=== PATIENT | female | born 1995 | race Caucasian/White ===

== ENCOUNTER 2021-10-04 10:44 | Outpatient (CLI) | payer BC, SELFPAY ==
[2021-10-04 12:23] LABS: SARS-CoV-2 RNA PCR Negative (Negative)
== END 2021-10-04 10:45 | disposition home or self-care (01) ==
PROVIDERS: PCP Internal Medicine; Visit Provider Internal Medicine
DX: Z20.822 Contact with and (suspected) exposure to COVID-19 (principal)
CPT/HCPCS: C9803; U0003; U0005

== ENCOUNTER 2021-11-19 10:57 | Outpatient (CLI) | payer BC, SELFPAY ==
[2021-11-19 11:48] LABS: Influenza Control Valid (Valid); SARS-CoV-2 Ag Negative (Negative)
[2021-11-19 12:50] LABS: SARS-CoV-2 RNA PCR Negative (Negative)
== END 2021-11-19 10:58 | disposition home or self-care (01) ==
LOC: CHSLAB 11:00
PROVIDERS: PCP Internal Medicine; Visit Provider Nurse Practitioner Family
DX: J06.9 Acute upper respiratory infection, unspecified (principal); R05.9 Cough, unspecified; Z20.822 Contact with and (suspected) exposure to COVID-19
CPT/HCPCS: 36415; 87426; 87804; C9803; U0003; U0005

== ENCOUNTER 2022-04-04 07:11 | Outpatient (CLI) | payer BC, SELFPAY ==
[2022-04-04 07:44] LABS: Creatinine Urine 96.48 mg/dL (40-278); Total Protein Urine Random 31.1 mg/dL (0.0-11.9)
[2022-04-04 07:47] LABS: Total Protein Urine 24 Hr 389 mg/24hr (0-149); Total Volume 24 Hour Urine 1250 ml
[2022-04-04 07:52] LABS: Specific Gravity Ur 1.015
== END 2022-04-04 07:12 | disposition home or self-care (01) ==
PROVIDERS: PCP Internal Medicine; Visit Provider Obstetrics & Gynecology
DX: O16.3 Unspecified maternal hypertension, third trimester (principal)
CPT/HCPCS: 81050; 82570; 84156

== ENCOUNTER 2022-04-23 08:28 | Outpatient (RCR) | payer BC, SELFPAY ==
[2022-04-06 09:47] LABS: Basophils Percent Auto 0.3 % (0.2-1.2); Eosinophils Absolute Auto 0.1 K/mm3 (0-0.3); Eosinophils Percent Auto 0.7 % (0-4.4); Hematocrit 31.6 % (37.0-47.0); Hemoglobin 10.2 g/dL (12.0-15.0); Immature Granulocyte Absolute 0.05 K/mm3 (0.00-0.031); Immature Granulocyte Percent A 0.5 % (0-0.5); Lymphocytes Absolute Auto 2.26 K/mm3 (0.9-3.2); Lymphocytes Percent Auto 22.5 % (18.3-44.2); Mean Corpuscular HGB Conc 32.3 g/dl (32-36); Mean Corpuscular Hemoglobin 27.3 pg (26-34); Mean Corpuscular Volume 84.5 fl (80-100); Mean Platelet Volume 9.9 fl (7.4-10.4); Monocytes Percent Auto 10.1 % (2.6-8.5); Neutrophils Absolute Auto 6.6 K/mm3 (1.3-6.7); Neutrophils Percent Auto 65.9 % (45.5-73.1); Platelet Count Result 254 k/mm3 (150-375); Red Blood Count 3.74 M/mm3 (4.2-5.4); Red Cell Distribution Width 13.2 % (11.5-14.5); White Blood Count 10.1 K/mm3 (4.5-10.0)
[2022-04-06 09:59] LABS: Alanine Aminotransferase 14 U/L (6-35); Albumin Level 3.5 g/dL (3.5-5.1); Alkaline Phosphatase 141 U/L (38-126); Anion Gap 3 mmol/L (8-16); Aspartate Amino Transferase 20 U/L (14-36); Bilirubin,Total 0.2 mg/dL (0.2-1.3); Blood Urea Nitrogen 8 mg/dL (7-17); Calcium 8.4 mg/dL (8.4-10.2); Carbon Dioxide 24 mmol/L (22-30); Chloride 107 mmol/L (98-107); Estimated Glomerular Filt Rate > 60; Glucose 93 mg/dL (65-110); Potassium 4.3 mmol/L (3.4-5.0); Sodium 134 mmol/L (137-145); Uric Acid 3.8 mg/dL (2.5-7.5)
[2022-04-06 10:21] LABS: Creatinine Urine 57.5 mg/dL; Total Protein Urine Random 12 mg/dL; Ur Ttl Prot Creatinine Ratio 0.21 mg/mg (0-0.20)
[2022-04-06 10:34] VITALS: BP 116/80; PULSE 89
[2022-04-06 10:43] LABS: Appearance Urine Clear (Clear); Bilirubin Urine Negative (Negative); Color Urine Yellow (Yellow); Glucose Urine UA Negative (Negative); Ketones Urine Negative (Negative); Leukocyte Esterase Ur 1+ LEU/UL (NEGATIVE); Nitrate Urine Negative (Negative); Protein Urine Negative (Negative); Specific Grav Ur 1.015 (1.001-1.035); Urobilinogen Urine 0.2 mg/dL (<2.0)
[2022-04-06 10:52] LABS: Bacteria Urine Trace /hpf; RBC Urine 0-2 /hpf (0-2); Squamous Epithelial Cell Urine Moderate /hpf (Few); WBC Urine 0-3 /hpf (0-3)
[2022-04-06 11:01] LABS: Add Urine Microscopic? YES; Blood Urine Trace-Intact (Negative)
[2022-04-11 09:16] VITALS: BP 119/72; PULSE 103
[2022-04-14 08:26] LABS: Basophils Percent Auto 0.3 % (0.2-1.2); Eosinophils Absolute Auto 0.1 K/mm3 (0-0.3); Eosinophils Percent Auto 0.6 % (0-4.4); Hematocrit 29.8 % (37.0-47.0); Hemoglobin 9.5 g/dL (12.0-15.0); Immature Granulocyte Absolute 0.04 K/mm3 (0.00-0.031); Immature Granulocyte Percent A 0.4 % (0-0.5); Lymphocytes Absolute Auto 2.29 K/mm3 (0.9-3.2); Lymphocytes Percent Auto 24.6 % (18.3-44.2); Mean Corpuscular HGB Conc 31.9 g/dl (32-36); Mean Corpuscular Hemoglobin 26.8 pg (26-34); Mean Corpuscular Volume 83.9 fl (80-100); Mean Platelet Volume 10.1 fl (7.4-10.4); Monocytes Absolute Auto 0.8 K/mm3 (0.1-0.6); Neutrophils Absolute Auto 6.2 K/mm3 (1.3-6.7); Neutrophils Percent Auto 66.1 % (45.5-73.1); Platelet Count Result 233 k/mm3 (150-375); Red Blood Count 3.55 M/mm3 (4.2-5.4); Red Cell Distribution Width 13.2 % (11.5-14.5); White Blood Count 9.3 K/mm3 (4.5-10.0)
[2022-04-14 08:35] VITALS: BP 130/80; PULSE 103
[2022-04-14 08:58] LABS: Alanine Aminotransferase 15 U/L (6-35); Albumin Level 3.2 g/dL (3.5-5.1); Alkaline Phosphatase 142 U/L (38-126); Anion Gap 4 mmol/L (8-16); Aspartate Amino Transferase 19 U/L (14-36); Bilirubin,Total 0.2 mg/dL (0.2-1.3); Blood Urea Nitrogen 9 mg/dL (7-17); Calcium 8.7 mg/dL (8.4-10.2); Carbon Dioxide 22 mmol/L (22-30); Chloride 108 mmol/L (98-107); Estimated Glomerular Filt Rate > 60; Glucose 139 mg/dL (65-110); Sodium 134 mmol/L (137-145); Uric Acid 3.9 mg/dL (2.5-7.5)
[2022-04-14 09:07] LABS: Potassium 4.3 mmol/L (3.4-5.0)
--- NOTE | 2022-04-14 09:17 | PC.NURSE ---
BPP 05/30
[2022-04-18 19:21] VITALS: BP 118/85; PULSE 85
[2022-04-21 08:55] LABS: Basophils Percent Auto 0.4 % (0.2-1.2); Eosinophils Absolute Auto 0.1 K/mm3 (0-0.3); Eosinophils Percent Auto 0.8 % (0-4.4); Hematocrit 29.4 % (37.0-47.0); Hemoglobin 9.3 g/dL (12.0-15.0); Immature Granulocyte Absolute 0.04 K/mm3 (0.00-0.031); Immature Granulocyte Percent A 0.5 % (0-0.5); Lymphocytes Absolute Auto 2.03 K/mm3 (0.9-3.2); Lymphocytes Percent Auto 24.5 % (18.3-44.2); Mean Corpuscular HGB Conc 31.6 g/dl (32-36); Mean Corpuscular Hemoglobin 26.3 pg (26-34); Mean Corpuscular Volume 83.1 fl (80-100); Monocytes Absolute Auto 0.8 K/mm3 (0.1-0.6); Monocytes Percent Auto 9.6 % (2.6-8.5); Neutrophils Absolute Auto 5.3 K/mm3 (1.3-6.7); Neutrophils Percent Auto 64.2 % (45.5-73.1); Platelet Count Result 222 k/mm3 (150-375); Red Blood Count 3.54 M/mm3 (4.2-5.4); Red Cell Distribution Width 13.3 % (11.5-14.5); White Blood Count 8.3 K/mm3 (4.5-10.0)
[2022-04-21 09:09] LABS: Alanine Aminotransferase 14 U/L (6-35); Alkaline Phosphatase 145 U/L (38-126); Anion Gap 5 mmol/L (8-16); Aspartate Amino Transferase 19 U/L (14-36); Bilirubin,Total 0.1 mg/dL (0.2-1.3); Blood Urea Nitrogen 8 mg/dL (7-17); Calcium 8.7 mg/dL (8.4-10.2); Carbon Dioxide 20 mmol/L (22-30); Chloride 109 mmol/L (98-107); Estimated Glomerular Filt Rate > 60; Glucose 131 mg/dL (65-110); Potassium 3.8 mmol/L (3.4-5.0); Sodium 134 mmol/L (137-145); Uric Acid 4.7 mg/dL (2.5-7.5)
[2022-04-21 09:20] VITALS: BP 126/82; PULSE 101
--- NOTE | ~2022-04-23 | US_ITS ---
US OB BPP wo non-stress DATE: 04/06/2022 10:01 INDICATION: Preeclampsia TECHNIQUE: Real-time imaging and Doppler analysis COMPARISON: 03/25/2022 Limited obstetrical ultrasound from [place] [employer] FINDINGS: Live trejo intrauterine gestation, fetus in vertex presentation, longitudinal lie with heart rate of 142 bpm. Posterior placenta. Amniotic fluid index measures 16.0 cm, normal. BIOPHYSICAL PROFILE reported by hazardous waste technician: breathin out of 2 movement: 2 out of 2 tone: 2 out of 2 Amniotic fluid pocket: 2 out of 2 Total score: 8 out of 8 IMPRESSION: Normal biophysical profile score of 8 out of 8 Reviewed, dictated and finalized at [facility]. Reviewed, dictated and finalized at location A.
--- NOTE | ~2022-04-23 | US_ITS ---
EXAMINATION: US OB BPP wo non-stress DATE: 04/14/2022 09:17 INDICATION: Preeclampsia. Third trimester. TECHNIQUE: Real-time pelvic ultrasound was performed. COMPARISON: Ultrasound 04/06/2022 FINDINGS: There is a single living fetus in vertex presentation. The placenta is posterior. heart rate i s 147 beats per minute (bpm). Biophysical profile performed by the technologist: breathing (30 sec sustained breathing in 30 minutes): 2 out of 2 movement (3 gross body movements in 30 minutes): 2 out of 2 tone (one episode of lvkpfrq-sldrhyyrk-phdfqaf limb movement): 2 out of 2 Amniotic fluid pocket (2 cm): 2 out of 2 Total score: 8 out of 8 IMPRESSION: 1. Single living fetus in vertex presentation. 2. Biophysical profile 8 out of 8. Reviewed, dictated and finalized at location A.
--- NOTE | ~2022-04-23 | US_ITS ---
EXAMINATION: US OB BPP wo non-stress DATE: 04/21/2022 09:21 CDT INDICATION: Gestational hypertension TECHNIQUE: Real-time transabdominal obstetric ultrasound. FINDINGS: 04/14/2022 There is a single living fetus in vertex presentation. The placenta is posterior without placenta pr evia. cardiac activity and movement is noted with a heart rate of 146 beats per minute. Biophysical profile: breathin of 2 movement: 2 of 2 tone: 2 of 2 Amniotic flud pocket: 2 of 2 Total score: 8 of 8 IMPRESSION: 1. Single living intrauterine in vertex presentation. 2: Total biophysical profile score of 8/8. Reviewed, dictated and finalized at location A.
[2022-04-23 09:13] VITALS: BP 124/85; PULSE 101
== END 2022-04-30 09:28 | disposition home or self-care (01) ==
LOC: ANHOBOP 08:28
PROVIDERS: PCP Internal Medicine; Visit Provider Obstetrics & Gynecology
DX: O14.93 Unspecified pre-eclampsia, third trimester (principal); Z3A.34 34 weeks gestation of pregnancy; Z3A.35 35 weeks gestation of pregnancy
CPT/HCPCS: 36415; 59025; 76819; 80053; 81001; 82570; 84156; 84550; 85025; 87086; 87088; 87147

== ENCOUNTER 2022-04-25 16:49 | Inpatient (IN) | payer BC, SELFPAY ==
[2022-04-25] VITALS (35 sets, daily range): BP systolic 102–143; BP diastolic 58–98; PULSE 65–131; TEMP 36.4–36.8; O2SAT 99–100; BMI 35.1
--- NOTE | 2022-04-25 17:57 | LDADM ---
This patient, Purvi Donato, was admitted to Labor/Delivery/Recovery 108 on 04/25/22 at 16:49. Plans for labor, pain management and were discussed with patient. Patient/family oriented to hospital policies and general routines including ID bracelet, bed and alarms, visiting hours, pain management, procedures, bathroom and other care routines, personal items, smoking policy, room service/diet and guest tray routines, security routines, and visiting hours. Patient/Family are encouraged to report perceived risks to care and to ask questions if they do not understand what they are told or what they should do. See OBIX for further documentation.
[2022-04-25 18:02] LABS: Basophils Percent Auto 0.4 % (0.2-1.2); Eosinophils Percent Auto 0.5 % (0-4.4); Hematocrit 29.5 % (37.0-47.0); Hemoglobin 9.4 g/dL (12.0-15.0); Immature Granulocyte Absolute 0.04 K/mm3 (0.00-0.031); Immature Granulocyte Percent A 0.5 % (0-0.5); Lymphocytes Absolute Auto 2.02 K/mm3 (0.9-3.2); Mean Corpuscular HGB Conc 31.9 g/dl (32-36); Mean Corpuscular Hemoglobin 26.3 pg (26-34); Mean Corpuscular Volume 82.6 fl (80-100); Mean Platelet Volume 10.2 fl (7.4-10.4); Monocytes Absolute Auto 0.7 K/mm3 (0.1-0.6); Monocytes Percent Auto 9.1 % (2.6-8.5); Neutrophils Absolute Auto 4.9 K/mm3 (1.3-6.7); Neutrophils Percent Auto 63.5 % (45.5-73.1); Platelet Count Result 242 k/mm3 (150-375); Red Blood Count 3.57 M/mm3 (4.2-5.4); Red Cell Distribution Width 13.5 % (11.5-14.5); White Blood Count 7.8 K/mm3 (4.5-10.0)
[2022-04-25 18:10] LABS: Alanine Aminotransferase 18 U/L (6-35); Albumin Level 3.1 g/dL (3.5-5.1); Alkaline Phosphatase 157 U/L (38-126); Anion Gap 7 mmol/L (8-16); Aspartate Amino Transferase 22 U/L (14-36); Bilirubin,Total 0.1 mg/dL (0.2-1.3); Blood Urea Nitrogen 13 mg/dL (7-17); Calcium 8.9 mg/dL (8.4-10.2); Carbon Dioxide 17 mmol/L (22-30); Chloride 111 mmol/L (98-107); Estimated CRCL calculation 122 ml/min; Estimated Glomerular Filt Rate > 60; Glucose 136 mg/dL (65-110); Potassium 3.8 mmol/L (3.4-5.0); Sodium 135 mmol/L (137-145)
[2022-04-25 18:15] LABS: Uric Acid 4.9 mg/dL (2.5-7.5)
[2022-04-25] MEDS: DINOPROSTONE 10 MG VAG INSERT VAGINAL (18:30)
[2022-04-25 18:49] LABS: Hepatitis B Surface Antigen Negative (Negative)
[2022-04-25] MEDS: LACTATED RINGERS 1,000 ML 125 ML IV CONT ×3 (19:01→23:57)
[2022-04-25] MEDS: AMPICILLIN 2 GM/NS 100 ML 2 GM/100 ML BAG IVPB (20:26)
--- NOTE | 2022-04-25 23:25 | WPDANESEPP ---
Anes - Eval Pre Procedure Procedure: labor epidural Date/Time: 04/25/22 23:25 Surgeon: wendy Pre Op Diagnosis: IOL Patient Data Age: 26 Gender: F Height: 1.68 m Weight: 98.6 kg Last Vital Signs Temp 36.4 C L 04/25/22 20:30 Pulse 66 04/25/22 23:16 BP 124/72 04/25/22 23:16 Pulse Ox 100 04/25/22 23:24 O2 Del Method Room Air 04/25/22 17:54 Allergies Allergy/AdvReac Type Severity Reaction Status Date / Time latex Allergy Hives Verified 04/18/22 15:38 Home Medications Medication Instructions Recorded Confirmed Type aspirin 81 mg chewable tablet 81 mg PO DAILY 11/04/21 04/25/22 History famotidine 20 mg tablet (Pepcid AC) 20 mg PO DAILY #90 tabs 11/04/21 04/25/22 Rx vit no.95-ferrous 1 tablet PO DAILY #30 tabs 11/04/21 04/25/22 Rx fumarate 28 mg-folic acid 800 mcg tablet () Laboratory Tests 04/25/22 04/25/22 04/25/22 17:17 17:17 17:17 WBC 7.8 K/mm3 K/mm3 (4.5-10.0) RBC 3.57 M/mm3 L M/mm3 (4.2-5.4) Hgb 9.4 g/dL L g/dL (12.0-15.0) Hct 29.5 % L % (37.0-47.0) MCV 82.6 fl fl (80-100) MCH 26.3 pg pg (26-34) MCHC 31.9 g/dl L g/dl (32-36) RDW 13.5 % % (11.5-14.5) Plt Count 242 k/mm3 k/mm3 (150-375) MPV 10.2 fl fl (7.4-10.4) Immature Gran % (Auto) 0.5 % % (0-0.5) Neut % (Auto) 63.5 % % (45.5-73.1) Lymph % (Auto) 26.0 % % (18.3-44.2) Haskell % (Auto) 9.1 % H % (2.6-8.5) Eos % (Auto) 0.5 % % (0-4.4) Baso % (Auto) 0.4 % % (0.2-1.2) Lymph # (Auto) 2.02 K/mm3 K/mm3 (0.9-3.2) Haskell # (Auto) 0.7 K/mm3 H K/mm3 (0.1-0.6) Eos # (Auto) 0.0 K/mm3 K/mm3 (0-0.3) Baso # (Auto) 0.0 K/mm3 K/mm3 (0.0-0.1) Abs Immat Gran (auto) 0.04 K/mm3 H K/mm3 (0.00-0.031) Absolute Neuts (auto) 4.9 K/mm3 K/mm3 (1.3-6.7) Absolute Nucleated RBC 0.0 K/mm3 K/mm3 (0.0-0.012) Nucleated RBC % 0.0 % % (0.0-0.2) Sodium Potassium Chloride Carbon Dioxide Anion Gap BUN Creatinine Estim Creat Clear Calc Estimated GFR Glucose Uric Acid Calcium Total Bilirubin AST ALT Alkaline Phosphatase Total Protein Albumin RPR Pending Hep Bs Antigen Blood Type O Positive Antibody Screen Negative 04/25/22 04/25/22 04/25/22 17:32 17:32 17:32 WBC RBC Hgb Hct MCV MCH MCHC RDW Plt Count MPV Immature Gran % (Auto) Neut % (Auto) Lymph % (Auto) Haskell % (Auto) Eos % (Auto) Baso % (Auto) Lymph # (Auto) Haskell # (Auto) Eos # (Auto) Baso # (Auto) Abs Immat Gran (auto) Absolute Neuts (auto) Absolute Nucleated RBC Nucleated RBC % Sodium 135 mmol/L L mmol/L (137-145) Potassium 3.8 mmol/L mmol/L (3.4-5.0) Chloride 111 mmol/L H mmol/L (98-107) Carbon Dioxide 17 mmol/L L mmol/L (22-30) Anion Gap 7 mmol/L L mmol/L (8-16) BUN 13 mg/dL D mg/dL (7-17) Creatinine 0.70 mg/dL mg/dL (0.7-1.0) Estim Creat Clear Calc 122 ml/min ml/min Estimated GFR > 60 (59 - ) Glucose 136 mg/dL H mg/dL (65-110) Uric Acid 4.9 mg/dL mg/dL (2.5-7.5) Calcium 8.9 mg/dL mg/dL (8.4-10.2) Total Bilirubin 0.1 mg/dL L mg/dL (0.2-1.3) AST 22 U/L U/L (14-36) ALT 18 U/L U/L
[2022-04-26] VITALS (154 sets, daily range): BP systolic 79–146; BP diastolic 49–81; PULSE 62–134; RESP 16–18; TEMP 36.1–37; O2SAT 80–100
[2022-04-26] MEDS: AMPICILLIN 1 GM/NS 50 ML 1 GM/50 ML BAG IVPB ×3 (00:32→08:30)
--- NOTE | 2022-04-26 06:36 | PM.IMHP ---
H&P: HPI History of Present Illness Date/Time: 04/26/22 06:36 Chief Complaint: induction Narrative: Purvi is a 26yo @ 37.4wk who was admitted overnight for induction of labor. She is s/p cervidil that had to be removed early for tachysystole. She has continued to have period of tachysystole and progressed to 7cm. she is comfortable, s/p epidural. Feeling good movements. No LOF or VB. No symptoms of PEC. Her has been complicated by: 1. H/o gestational HTN -- on ASA 2. PEC w/o SF (protein 389) 3. Elevated glucola; repeat 3h OGTT normal 4. GBS positive 5. Anemia Review of Systems Review of Systems: All systems reviewed & are unremarkable except as noted in HPI and below (HPI) PMFSH Past Medical History Medical History Gestational [-induced] hypertension without significant proteinuria, complicating childbirth Migraines Surgical History Surgical History S/P left knee arthroscopy Family History Family History Grandparent Diabetes mellitus Grandparent Cerebrovascular accident Grandparent Hypertension Other Unknown family medical history Social History Social History Smoking status: Never smoker Second hand tobacco smoke exposure: No Alcohol intake: never Substance use: never Additional occupation/education comments: pt is a counselor at [employer] Gender identity (if verbalized by the patient): Female Sexual Orientation (if Verbalized by the Patient): Straight or Heterosexual Spiritual care concerns: No Meds Home Medications and Allergies Home Medications Medication Instructions Recorded Confirmed Type aspirin 81 mg chewable tablet 81 mg PO DAILY 11/04/21 04/25/22 History famotidine 20 mg tablet (Pepcid AC) 20 mg PO DAILY #90 tabs 11/04/21 04/25/22 Rx vit no.95-ferrous 1 tablet PO DAILY #30 tabs 11/04/21 04/25/22 Rx fumarate 28 mg-folic acid 800 mcg tablet () Allergies Allergy/AdvReac Type Severity Reaction Status Date / Time latex Allergy Hives Verified 04/18/22 15:38 Vital Signs Vital Signs - 24 hr 04/25/22 17:09 04/25/22 17:15 04/25/22 17:45 Temperature Pulse Rate 98 103 H 87 Blood Pressure 143/87 H 131/83 130/82 Pulse Oximetry Oxygen Delivery 04/25/22 17:18 04/25/22 18:00 04/25/22 18:15 Temperature 98.2 F Pulse Rate 88 95 Blood Pressure 132/78 127/75 Pulse Oximetry Oxygen Delivery 04/25/22 18:45 04/25/22 19:00 04/25/22 19:15 Temperature Pulse Rate 112 H 84 83 Blood Pressure 123/78 135/86 124/84 Pulse Oximetry Oxygen Delivery 04/25/22 19:30 04/25/22 19:45 04/25/22 20:00 Temperature Pulse Rate 80 86 90 Blood Pressure 137/88 131/86 132/92 H Pulse Oximetry Oxygen Delivery 04/25/22 20:30 04/25/22 21:48 04/25/22 22:00 Temperature 97.5 F L Pulse Rate 77 69 73 Blood Pressure 135/81 130/81 123/75 Pulse Oximetry Oxygen Delivery 04/25/22 22:15 04/25/22 22:31 04/25/22 22:45 Temperature Pulse Rate 78 76 70 Blood Pressure 128/78 128/82 137/84 Pulse Oximetry Oxygen Delivery 04/25/22 23:12 04/25/22 23:16 04/25/22 23:24 Temperature Pulse Rate 65 66 Blood Pressure 128/78 124/72 Pulse Oximetry 100 Oxygen Delivery 04/25/22 23:29 04/25/22 23:30 04/25/22 23:34 Temperature Pulse Rate 75 Blood Pressure 129/89 Pulse Oximetry 100 100 Oxygen Delivery 04/25/22 23:36 04/25/22 23:38 04/25/22 23:39 Temperature Pulse Rate 83 84 86 Blood Pressure 135/98 H 136/66 124/80 Pulse Oximetry 99 Oxygen Delivery 04/25/22 23:41 04/25/22 23:43 04/25/22 23:45 Temperature Pulse Rate 89 86 95 Blood Pressure 124/83 126/58 L 128/75 Pulse Oximetry 100 Oxygen Delivery
--- NOTE | 2022-04-26 06:50 | WPDHPUPDATE1 ---
History and Physical Update Update Date/Time: 04/26/22 06:50 History and Physical has been reviewed, including an updated exam of the patient. There are NO changes in the patient's condition. Risks, benefits, and alternatives have been discussed and questions answered. Patient agrees to proceed with procedure.
[2022-04-26 07:09] LABS: Rapid Plasma Reagin Non-Reactive (NonReactive)
[2022-04-26] MEDS: OXYTOCIN 30 UNITS/NS 500 ML 30 UNITS/500 ML BAG IV CONT (07:34)
[2022-04-26] MEDS: LACTATED RINGERS 1,000 ML 125 ML IV CONT (08:30)
[2022-04-26] MEDS: miSOPROStol 200 MCG TABLET 1000 MCG (10:32)
--- NOTE | 2022-04-26 10:47 | PM.OBPRVD ---
OB - Delivery Note Procedure Delivery date: 04/26/22 Events: Preeclampsia w/o severe features Induction method: Per Cervidil Protocol Delivery augmentation: Rupture of Membranes and Pitocin Delivery monitor: External FHT and External Uterine Route of delivery: Laceration Description: None Specimen: Yes Quantitative Blood Loss (ml): 400 Anesthesia type: Epidural Disposition: Floor Dexter Baby Date of : 04/26/22 Time of : 10:24 Weeks of gestation at delivery: 37 (.4) gender: Male Weight (pounds): 8 Weight (ounces): 14 presentation: vertex position: Left Occiput Anterior Placenta delivery description: Expressed Cord Vessel Description: 3 Vessels, Nuchal Cord, Loose and Delayed Cord Clamping score one minute: 8 score five minutes: 9 Narrative: Purvi progressed to complete dilation with strong desire to push. She pushed for approximately 10 minutes with good maternal effort. She delivered the head over intact perineum. A nuchal cord was palpated but loose and delivered through. She easily delivered the 's shoulders and body without complication. The infant was immediately placed skin to skin and cry was heard. Delayed cord clamping was performed. The umbilical cord was then clamped and cut. A segment of the cord was collected for cord gases. The remaining cord blood was collected for typing. With Pitocin running and gentle downward traction on the cord, the placenta delivered without complications. A large gush of blood was noted and bimanual massage revealed slight uterine atony that responded to massage and bleeding slowed down. She was examined and no lacerations were noted. Good hemostasis was noted. Misoprostol 800 mcg was placed rectally to prevent further bleeding. Sponge, lap, instrument, needle counts were correct at the end of procedure. [facility] Delivery Billing Delivery Delivery: Delivery Charge
[2022-04-26] MEDS: OXYTOCIN 30 UNITS/NS 500 ML 30 UNITS/500 ML BAG 125 UNITS IV CONT (10:51)
[2022-04-26] MEDS: BENZOCAINE 20% AER SPR (*SP) 56 GM CAN 1 SPRAY TOPICAL (12:24)
[2022-04-26] MEDS: WITCH HAZEL 40 PADS 1 PAD TOPICAL (12:24)
[2022-04-26] MEDS: IBUPROFEN 600 MG TABLET PO ×2 (12:24→19:14)
[2022-04-26] MEDS: ACETAMINOPHEN 325 MG TABLET 650 MG PO (13:46)
[2022-04-26] MEDS: POLYSACCHARIDE IRON COMPLEX 150 MG CAPSULE PO (16:21)
[2022-04-26] MEDS: DOCUSATE SODIUM 100 MG CAPSULE PO (16:22)
--- NOTE | 2022-04-26 16:22 | PC.NURSE ---
Breast pump provided due to nipple shield . Instructions given on cleaning, care, usage, that there should be no pain, pumping schedule for milk production, collection, and storage of human milk. Parents are encouraged to record pumping schedule on the [feeding sheet/pumping log]. Patient was assessed for correct placement, flange size, to pump for comfort and nipple stretching/stimulation for adequate milk production every 3 hours (8 times in 24 hours). Mother voiced understanding of the education shared along with mom and baby guide for additional resource information. Reported to the primary RN.
--- NOTE | 2022-04-26 16:23 | PC.NURSE ---
Consulted with patient to assess needs related to . Mother led conversation with her experience with feeding her previous baby and using a nipple shield with that child. Mother works well with her infant. Reviewed working with , breast, nipples and how to protect the nipples with an optimal deep latch, good positioning, and good hand washing. Encouraged understanding the benefits of skin to skin, responding to feeding cues, frequencies of feeding 8-12 times in 24 hours (approximately 2-3 hours), duration of feedings, milk production, intake/output feeding sheet and signs of adequate intake encouraging swallowing at the breast. Reviewed positioning and alignment, supporting breast, off-centered (asymmetrical latch) and leading with the chin with big open wide gape. latched optimally to the right] breast in football/ position with nipple shield. Education given to mother of how to visualize suck/swallow ratios and drinking at the breast. Infant was able to maintain latch without discomfort to mother. Nipple care reviewed with optimal latch and good positioning, comfort, healing with warm, wet washcloth to rinse breast, then leave open to air-dry, colostrum may be left on nipples to dry but have clean hands when touching the nipple/breast as needed. Resources used to facilitate learning were used from the [visual handout/mom and baby guide]. Mother voiced understanding of the education shared, calling for assistance if the does not latch or if there is discomfort with . Reported to the primary RN.
--- NOTE | 2022-04-26 16:27 | PC.NURSE ---
Nipple shield provided to mother due to flat nipples. Reviewed good handwashing, cleaning the nipple shield and application. Discussed with mom the nipple shield precautions, possible complications associated with the risks and benefits. Reviewed practicing with a nipple shield, then without and how to protect the milk supply and production. Mom and baby guide referred to as a resource for using a nipple shield, out-patient services, community resources and when to call a provider. Mom voiced understanding of the importance of hand expression, nipple stimulation and initiating a pumping schedule if continues to nurse with the shield.
[2022-04-27] MEDS: IBUPROFEN 600 MG TABLET PO ×3 (02:10→17:31)
[2022-04-27 04:28] VITALS: BP 115/75; PULSE 70; RESP 16; TEMP 36.7
[2022-04-27 04:58] LABS: Hematocrit 26.6 % (37.0-47.0); Hemoglobin 8.2 g/dL (12.0-15.0); Mean Corpuscular HGB Conc 30.8 g/dl (32-36); Mean Corpuscular Volume 84.4 fl (80-100); Mean Platelet Volume 10.7 fl (7.4-10.4); Platelet Count Result 189 k/mm3 (150-375); Red Blood Count 3.15 M/mm3 (4.2-5.4); Red Cell Distribution Width 13.6 % (11.5-14.5); White Blood Count 10.9 K/mm3 (4.5-10.0)
[2022-04-27 05:08] LABS: Alanine Aminotransferase 16 U/L (6-35); Albumin Level 2.6 g/dL (3.5-5.1); Alkaline Phosphatase 121 U/L (38-126); Anion Gap 0 mmol/L (8-16); Aspartate Amino Transferase 33 U/L (14-36); Bilirubin,Total 0.1 mg/dL (0.2-1.3); Blood Urea Nitrogen 13 mg/dL (7-17); Calcium 8.3 mg/dL (8.4-10.2); Carbon Dioxide 25 mmol/L (22-30); Chloride 108 mmol/L (98-107); Estimated CRCL calculation 108 ml/min; Estimated Glomerular Filt Rate > 60; Glucose 78 mg/dL (65-110); Potassium 4.2 mmol/L (3.4-5.0); Sodium 133 mmol/L (137-145)
--- NOTE | 2022-04-27 07:21 | PM.OBPNVD ---
OB - PN: Subj Subjective Date/time seen: 04/27/22 07:20 Narrative: PPD#1 Purvi reports doing well today. Her bleeding is getting compensation/benefits specialist. Her pain is controlled. She is tolerating regular diet, voiding, passing gas, and ambulating without issues. She is breast feeding. She denies any symptoms of anemia. She would like her son circumcised. OB - PN: Obj Data Labs CBC & Chem 7: 04/27/22 04:27 04/27/22 04:27 Labs: Laboratory Results - last 24 hr 04/25/22 04/27/22 04/27/22 17:17 04:27 04:27 WBC 10.9 H RBC 3.15 L Hgb 8.2 L Hct 26.6 L MCV 84.4 MCH 26.0 MCHC 30.8 L RDW 13.6 Plt Count 189 MPV 10.7 H Sodium 133 L Potassium 4.2 Chloride 108 H Carbon Dioxide 25 Anion Gap 0 L BUN 13 Creatinine 0.80 Estim Creat Clear Calc 108 Estimated GFR > 60 Glucose 78 Calcium 8.3 L Total Bilirubin 0.1 L AST 33 ALT 16 Alkaline Phosphatase 121 Total Protein 6.0 L Albumin 2.6 L RPR Non-reactive OB - PN A/P Assessment and Plan (1) Pre-eclampsia: Qualifiers: Trimester: third trimester Qualified Code(s): O14.93 - Unspecified pre-eclampsia, third trimester Code(s): O14.90 - Unspecified pre-eclampsia, unspecified trimester Status: Acute (2) Normal vaginal delivery of second : Code(s): O80 - Encounter for full-term uncomplicated delivery Status: Acute (3) Anemia affecting second : Code(s): O99.019 - Anemia complicating , unspecified trimester Status: Acute Plan day: 1 Plan: routine care and discharge home (tomorrow) Comments: - discharge home tomorrow - Pelvic rest; take meds as prescribed - ER return precautions: fever, n/v/abd pain, bleeding, HTN Time Spent With Patient Time: Total time spent is greater than 50% in coordination of care (as documented) at patient's floor/unit and/or counseling patient: Review of Systems Constitutional: Constitutional: Denies chills, Denies fever(s) and Denies headache(s) Eyes: Eyes: Denies change in vision ENT: Denies dizziness and Denies headache(s) Cardiovascular: Cardiovascular: Denies chest pain, Denies palpitations and Denies dyspnea Respiratory: Respiratory: Denies cough and Denies dyspnea Gastrointestinal: Gastrointestinal: Denies nausea and Denies vomiting Neurologic: Denies dizziness and Denies headache(s) Endocrine: Endocrine: Denies palpitations Exam Const: General: cooperative, comfortable and no acute distress Orientation/consciousness: patient oriented x3 Resp: Effort & Inspection: normal respiratory effort Auscultation: clear to auscultation bilaterally Cardio: Rate: regular rate GI: Inspection: non-distended GI Palp: No abdominal tenderness and Yes Soft to palpation Auscultation: normal bowel sounds : Other: fundus firm Skin: General skin exam: normal color Neuro: General: patient oriented x3 Extrem: General: normal to inspection Psych: Appearance: grossly normal Affect: normal affect Attitude: cooperative
[2022-04-27 08:05] VITALS: BP 126/80; PULSE 79; RESP 18; TEMP 36.1; O2SAT 99
[2022-04-27] MEDS: DOCUSATE SODIUM 100 MG CAPSULE PO ×2 (09:12→17:32)
[2022-04-27] MEDS: MULTIVIT/MIN/PREN/FOL AC/IRON TABLET 1 TAB PO (09:12)
[2022-04-27] MEDS: FAMOTIDINE 20 MG TABLET PO (09:12)
[2022-04-27] MEDS: POLYSACCHARIDE IRON COMPLEX 150 MG CAPSULE PO ×2 (09:12→17:31)
--- NOTE | 2022-04-27 09:30 | WPDANLDPN2 ---
Anes-Prog Note L&D Date/Time: 04/27/22 09:30 Neuro status: Neuro function grossly intact. Vital Signs: Last Vital Signs Temp 36.1 C L 04/27/22 08:05 Pulse 79 04/27/22 08:05 Resp 18 04/27/22 08:05 BP 126/80 04/27/22 08:05 Pulse Ox 99 04/27/22 08:05 O2 Del Method Room Air 04/25/22 17:54 Pain score (VAS): 0 I/O: Intake & Output 04/26/22 04/27/22 04/27/22 23:59 07:59 15:59 Intake Total 500 1000 Output Total 800 Balance 500 200 Patient feedback: Patient satisfied with anesthetic care.
[2022-04-27 11:55] VITALS: BP 132/76; PULSE 83; RESP 18; TEMP 36.3; O2SAT 100
[2022-04-27 16:00] VITALS: BP 128/93; PULSE 74; RESP 14; TEMP 36.6; O2SAT 99
[2022-04-27 19:54] VITALS: BP 128/80; PULSE 67; PULSE 68; RESP 18; TEMP 36.4; O2SAT 99
[2022-04-28] MEDS: IBUPROFEN 600 MG TABLET PO (03:40)
[2022-04-28 03:43] VITALS: BP 121/84
--- NOTE | 2022-04-28 07:27 | PM.OBDSVD ---
DS: Admitting Diagnosis Discharge Date 04/28/22 Admitting Diagnosis induction of labor pre-eclampsia w/o severe features DS: Discharge Diagnosis Discharge Diagnosis (1) Anemia affecting second : Code(s): O99.019 - Anemia complicating , unspecified trimester Status: Acute (2) Normal vaginal delivery of second : Code(s): O80 - Encounter for full-term uncomplicated delivery Status: Acute (3) Pre-eclampsia: Qualifiers: Trimester: third trimester Qualified Code(s): O14.93 - Unspecified pre-eclampsia, third trimester Code(s): O14.90 - Unspecified pre-eclampsia, unspecified trimester Status: Acute OB - DS: Summary OB Procedures : NST, PIH Mgmt and Ultrasound OB Procedures Intrapartum: Spontaneous Vag Delivery OB Procedures: : None Peripartum Data Delivery Method: Natural Vaginal Laceration Description: None Status at Discharge Functional status at discharge: independent ambulation Overall status at discharge: patient is back to baseline Time Spent with Patient Time attestation: Total time spent providing and/or coordinating discharge services: Time spent: Less than 30 minutes Exam Const: General: cooperative, comfortable and no acute distress Orientation/consciousness: patient oriented x3 Resp: Effort & Inspection: normal respiratory effort Auscultation: clear to auscultation bilaterally Cardio: Rate: regular rate GI: Inspection: non-distended GI Palp: No abdominal tenderness and Yes Soft to palpation Auscultation: normal bowel sounds : Other: fundus firm Skin: General skin exam: normal color Neuro: General: patient oriented x3 Extrem: General: normal to inspection Psych: Appearance: grossly normal Affect: normal affect Attitude: cooperative DS: Data Data Completed and Pending Pending studies at discharge: Pending at discharge 04/26/22 11:08 Surgical [PTH] Routine Discharge Plan Discharge Attending physician on discharge: Harmony Deluca Discharging Clinician: Harmony Deluca Anticipated Discharge Date/Time: 04/28/22 08:00 Patient Disposition: Home, Self-Care Activity: may shower, may drive after 2 weeks and pelvic rest Diet: as tolerated and regular Patient Instructions: Antibiotic Form Stand Alone Forms: General Discharge Information Follow-up/Referrals: Harmony Deluca MD [Physician] - 2 Weeks (for BP check) Discharge Medications: New acetaminophen [Mapap (acetaminophen)] 325 mg Tablet 650 mg PO Q6H PRN (Reason: Mild Pain (1-3) Or Headache) 10 Days Qty: 60 0RF polysaccharide iron complex 150 mg iron Capsule 90 mg PO BIDWM 90 Days Qty: 180 0RF docusate sodium 100 mg Capsule 100 mg PO BID PRN (Reason: Constipation) 90 Days Qty: 180 0RF ibuprofen 600 mg Tablet 600 mg PO Q6H PRN (Reason: Cramping) 10 Days Qty: 40 0RF Continued PNV cmb#95-ferrous fumarate-FA [] 28 mg iron- 800 mcg tablet 1 tablet PO DAILY Qty: 30 2RF famotidine [Pepcid AC] 20 mg tablet 20 mg PO DAILY Qty: 90 3RF Discontinued aspirin 81 mg tablet,chewable 81 mg PO DAILY Date of admission: 04/25/22 16:49 Primary Care Provider: Leidy Mendoza Admitting Provider: Harmony Deluca Attending physician on admission: Harmony Deluca Condition: Stable
[2022-04-28 07:50] VITALS: BP 115/75; PULSE 81; RESP 16; TEMP 37; O2SAT 98
[2022-04-28] MEDS: POLYSACCHARIDE IRON COMPLEX 150 MG CAPSULE PO (08:54)
[2022-04-28] MEDS: FAMOTIDINE 20 MG TABLET PO (08:54)
[2022-04-28] MEDS: DOCUSATE SODIUM 100 MG CAPSULE PO (08:54)
[2022-04-28] MEDS: MULTIVIT/MIN/PREN/FOL AC/IRON TABLET 1 TAB PO (08:56)
[2022-04-28] MEDS: MEASLES,MUMPS,RUBELLA VACCINE 0.5 ML VIAL SUB-Q (10:08)
--- NOTE | 2022-04-28 12:19 | PC.NURSE ---
[id number] Introductions were made as mom demonstrates pumping her breast. Mother leads the conversation regarding bottle feeding her infant until her milk comes in and states right not there is nothing . Breast pump provided prior to shift due to ineffective . Instructions given on cleaning, care, usage, that there should be no pain, pumping schedule for milk production, collection, and storage of human milk. Parents are encouraged to record pumping schedule on the feeding sheet. Patient was assessed for correct placement, flange size, to pump for comfort and nipple stretching/stimulation for adequate milk production every 3 hours (8 times in 24 hours). Nipple shield provided prior to shift or brought in by mother. Reviewed good handwashing, cleaning the nipple shield and application. Discussed with mom the nipple shield precautions, possible complications associated with the risks and benefits. Reviewed practicing with a nipple shield, then without and how to protect the milk supply and production. Discussed risks with feeding related to EGA 37 weeks. Mother led the conversation with her experience and plan to feed her so far and her ability to feed her infant. Reminded parents to use good handwashing technique to prevent infection. Mother is feeding appropriately for growth of infant and understands stimulating to eat if needed. Infant has had appropriate feedings in the last 24 hours meets the outcomes for weight, output and jaundice at this time. Mother states she is confident to continue feeding her at home or when to call for assistance and denies any additional assistance or education at this time. Mother is not effectively or stimulating breast/nipples with hand expression, manual pumping or electric pumping. Reinforced understanding of milk production, transition of milk, signs of adequate intake, prevention/relief of engorgement, responsive after visualizing feeding cues, the different methods of stimulating infant to breastfeed 2-3 hours after the start of the last feeding, community resources, medication information reviewed per [employer] and when to call a provider using the resource of the mom and baby guide/[facility] website. Mother voiced understanding of the education shared and states she will bottle feed. Reported to the primary RN.
[2022-04-29 09:49] VITALS: BP 131/85; PULSE 78; RESP 20; TEMP 36.9; O2SAT 99
== END 2022-04-28 12:02 | disposition home or self-care (01) | DRG 807 ==
LOC: ANHLDR 16:54 → ANHOB2 04-26 13:23
PROVIDERS: Admitting Provider Obstetrics & Gynecology; PCP Internal Medicine; Visit Provider Obstetrics & Gynecology
DX: O13.4 Gestational [pregnancy-induced] hypertension without significant proteinuria, complicating childbirth (principal); Z37.0 Single live birth; O99.824 Streptococcus B carrier state complicating childbirth; O99.02 Anemia complicating childbirth; O14.04 Mild to moderate pre-eclampsia, complicating childbirth; O69.81X0 Labor and delivery complicated by cord around neck, without compression, not applicable or unspecified; O62.2 Other uterine inertia; Z3A.37 37 weeks gestation of pregnancy
CPT/HCPCS: 36415; 80053; 84550; 85025; 85027; 86592; 86850; 86900; 86901; 87340; 88307; 90710; A9270; J0290; J2590; J2795; J7120

== ENCOUNTER 2023-12-30 19:45 | Emergency (ER) | payer BC, SELFPAY ==
[2023-12-30] VITALS (16 sets, daily range): BP systolic 114–130; BP diastolic 74–104; PULSE 60–94; RESP 17–26; TEMP 36.6–36.8; O2SAT 18–100
--- NOTE | ~2023-12-30 | XR_ITS ---
EXAMINATION: XR knee LT 3V DATE: 12/30/2023 20:00 INDICATION: Left knee pain. Left knee dislocation. TECHNIQUE: 3 views of left knee were obtained. COMPARISON: None. FINDINGS: There is lateral dislocation of patella. No fracture. Joint spaces are normal. No knee join t effusion. IMPRESSION: 1. Lateral dislocation of left patella. Reviewed, dictated and finalized at location E. N RESOURCES COMPLIANCE MANAGER
[2023-12-30] MEDS: MORPHINE SULFATE (*CRX) 4 MG/ML INJ IV PUSH (20:13)
[2023-12-30] MEDS: ONDANSETRON INJ 4 MG/2 ML VIAL IV PUSH (20:17)
--- NOTE | 2023-12-30 20:39 | PC.NURSE ---
Dr Ortiz attempted to reduce pts knee into place p given Morphine 4 mg IV, unsuccesful, pt crying and anxious. Pt wanting medicine to help put her out and relax. Explained conscious sedation. Will have pt sign consent for procedure.
--- NOTE | 2023-12-30 20:40 | PC.NURSE ---
Consent signed for proceudrue.
--- NOTE | 2023-12-30 20:43 | ED.LOWEXIN ---
HPI - Extremity Injury (Lower) General Chief Complaint: Extremity Injury, Lower Stated Complaint: L knee injury Time Seen by Provider: 12/30/23 19:48 Source: patient and EMS Mode of arrival: EMS History of Present Illness HPI Narrative: patient is a 28-year-old female that had a dislocated patella that occurred earlier this afternoon after she was playing with her child, received pain medicine via EMS in route to the emergency department. There is a noticeable deformity of dislocated patella has no numbness or tingling has a brisk pedal pulse on the left. Patient states that she has had ligament surgery in the past in the on the left knee. complaint: knee injury Onset (ago): hour(s) Injury: Left: knee ( dislocated patella) Severity: severe Severity scale (1-10): >10 Related Data Home Medications Medication Instructions Recorded Confirmed bupropion HCl 150 mg 24 hr tablet, 150 mg PO DAILY 12/30/23 12/30/23 extended release Allergies Allergy/AdvReac Type Severity Reaction Status Date / Time latex Allergy Hives Verified 11/16/23 14:58 Review of Systems Review of Systems: All systems reviewed & are unremarkable except as noted in HPI and below PMFSH Past Medical History Medical History Gestational [-induced] hypertension without significant proteinuria, complicating childbirth Migraines Surgical History Surgical History S/P left knee arthroscopy Family History Family History Grandparent Diabetes mellitus Grandparent Cerebrovascular accident Grandparent Hypertension Other Unknown family medical history Social History Social History Smoking status: Never smoker Second hand tobacco smoke exposure: No Alcohol intake: never Substance use: never Current Housing: Decline to Answer Concerned About Future Housing: Decline to Answer Difficulty Paying Gas/Electric Bills: Decline to Answer Difficulty Paying for Meds: Decline to Answer Currently Unemployed: Decline to Answer Education: Decline to Answer Difficulty w/ Childcare or Family Care: Decline to Answer Living arrangements: with family Occupation/Education: occupation Additional occupation/education comments: pt is a counselor at [employer] Gender identity (if verbalized by the patient): Female Sexual Orientation (if Verbalized by the Patient): Straight or Heterosexual Spiritual care concerns: No Exam Const: General: healthy appearing, no acute distress and alert Nutritional Appearance: well nourished Orientation/consciousness: patient oriented x3 Limitations: no limitations Resp: Effort & Inspection: normal respiratory effort Auscultation: clear to auscultation bilaterally Cardio: Rate: regular rate Rhythm: regular rhythm GI: GI Palp: Yes Soft to palpation Auscultation: normal bowel sounds Skin: General skin exam: normal color Rashes: no rashes Neuro: General: patient oriented x3, moves all extremities and no meningeal signs Extrem: Other: Visibly dislocated left patella Course Course Emergency Course: patient received morphine in the emergency department 4mg IV and 1mg of IV Versed ASA score of 1 patient Mallampati score of 2, patient did have her finger considerable amount of pain and was able to reduce the dislocated patella. x-ray performed shows no acute fractures just lateral dislocation of the patella. Transfer to [facility] in [place] and Dr. Ortiz accepted patient for transfer. Vital Signs Vital signs: Vital Signs Temperature 36.8 C 12/30/23 19:56 Pulse Rate 60 12/30/23 19:56 Respiratory Rate 20 12/30/23 19:56 Blood Pressure 114/81 12/30/23 19:56 Pulse Oximetry 98 12/30/23 19:56 Oxygen Delivery Room Air
--- NOTE | 2023-12-30 20:45 | PC.NURSE ---
Resp in room and room set up for sedation c pt on monitor. Monitor shows NSR, VSS. O2 in place at 2L NC c SPO2 at 100% and ETCO2 33.
[2023-12-30] MEDS: MIDAZOLAM HCL (*CRX) 2 MG/2 ML VIAL 1 MG IV PUSH (20:55)
--- NOTE | 2023-12-30 21:03 | PC.NURSE ---
Unable to reduce patella, pt remains awake during procedure and in pain, unable to relax during proceudre. VSS and monitor shows NSR c SPO2 in place. Pt unable to tolerate procedure and will transfer to ortho or surgery. Pt and spouse agreeable to plan.
--- NOTE | 2023-12-30 21:19 | PC.NURSE ---
Pt is accepted at [facility] under Dr Ortiz, will transfer to [facility] ER, report called to admission discharge rn.
--- NOTE | 2023-12-30 21:21 | PCRCNOTE ---
Conscience Sedation with Respiratory at bedside. Ambu bad w/ mask ready, and end tidal applied. Pt was set up with end tidal @ 1948 with Spo2 98 HR 70 RR 16 ETCO2 32 on RA. Pt was given sedation @ 2054p at that time 2L of o2 was added with vital SpO2 99... HR 73... RR 21... ETCO2 36. Pt was removed off 2L of O2 @ 2104, pt will be transfer. Vitals post SpO2 99... HR 75... RR 18... ETCO2 19 on RA. Ambu and End tidal left for monitoring.
--- NOTE | 2023-12-30 21:30 | PC.NURSE ---
Pt remains A&Ox3, urinated on bedpan, VSS, SAAS on way for transfer to [facility].
== END 2023-12-30 22:02 | disposition short-term general hospital (02) ==
PROVIDERS: Emergency Provider Emergency Medicine; PCP Internal Medicine
DX: S83.005A Unspecified dislocation of left patella, initial encounter (principal); Z79.899 Other long term (current) drug therapy; X58.XXXA Exposure to other specified factors, initial encounter
CPT/HCPCS: 27560; 73562; 96374; 96375; 99285; J2250; J2270; J2405

== ENCOUNTER 2024-05-07 16:47 | Outpatient (RCR) | payer BC, SELFPAY ==
--- NOTE | 2024-05-20 15:52 | OPREHPOC ---
Outpatient Therapy Plan of Care This is a Multidisciplinary Plan of Care that may contain components documented by all disciplines (PT, OT, and ST.) PT Problem 1 PT Problem #1 Knowledge Deficit PT Goal 1 Goal 1. independent and compliant with HEP Target Visit 6 PT Problem 2 PT Problem #2 Pain PT Goal 1 Goal 1. decrease pain at worst to 2/10 or less in the L LE. Target Visit 12 PT Problem 3 PT Problem #3 Impaired Strength PT Goal 1 Goal 1. patient to perform 10 SLR's of the L LE without extension lag 2. improve L knee strength to 4+/5 or better overall Target Visit 12 PT Problem 4 PT Problem #4 Impaired Functional Mobil PT Goal 1 Goal 1. patient to ambulate with normal gait mechanics without need for brace of the L knee 2. no instance of the L knee giving out on her in the last week. 3. LEFS to display 20% or less functional deficits Target Visit 12
--- NOTE | 2024-05-20 15:53 | PTOPEVAL1 ---
Assessment and note entered by JT File, PT Evaluation Information Assessment Status Evaluation Diagnosis dislocation of patellofemoral joint L, generalized weakness, L knee pain ICD-10 Condition Codes (PT) Pain in left knee M25.562 Other ICD-10 Condition Codes ( S83.005A, M62.81 PT) Onset 12/30/23 Subjective Information patient reports she was sitting on the floor with her legs extended. she reports her daughter sat on her leg and turned to stand up. she reports the knee cap on the L knee popped out. she came to [facility], but was unable to get the patellar relocated. she reports she had to go to [facility] and be put out to have it popped back in. she has had an MRI of the L knee. she reports she she is having a nerve conduction study tomorrow to evaluate nerve like symptoms from the L knee down to the ankle. she reports she has had no evaluation of the lumbar spine. she has already done a bout of rehab in [place]. she reports she has been unable to gain back the ability to perform a SLR of the L LE. she report her MD wanted her to try another facility. patient reports she has difficulty going down steps due to her L knee pain and weakness. she reports she also has issue with being unable to bend the knee. she reports the knee still gives out on her. Assessment PT Clinical Summary mrs. manzano presents to skilled PT services for evaluation and treatment of knee pain and weakness . she presents today with significant quad weakness and decreased stability of the L knee. she presents with signs and symptoms indicative of a nerve injury in the upper thigh. she would benefit from continued skilled PT to address her objective/functional deficits and progress towards a return to her prior level functional activity performance/quality of life. Plan of Care Interventions Electrical Stimulation,Gait Training,Hot Pack/Cold Pack,Manual Therapy,Neuro Re-education,Patient/ Caregiver Educati,Therapeutic Activities, Therapeutic Exercise PT Services Indicated Yes Treatment Frequency and 3x weekly for 12 visits Duration These treatments will address the objective and functional deficits as defined above. The patient will be advanced safely and appropriately in order for the patient to progress towards his/her prior level of function. Additional exercises will be introduced and as well as a comprehensive home exercise program upon discharge, if
--- NOTE | 2024-05-24 13:17 | PCPTNOTE ---
On 05/23/24, the license pending CLIENT TECHNOLOGIES ANALYST, [Nanci Maynard ], provided care and completed [facility] documentation on this patient. I have reviewed the license pending CLIENT TECHNOLOGIES ANALYST's documentation and agree with the findings.
--- NOTE | 2024-06-11 15:33 | OPREHPOC ---
Outpatient Therapy Plan of Care This is a Multidisciplinary Plan of Care that may contain components documented by all disciplines (PT, OT, and ST.) PT Problem 1 PT Problem #1 Knowledge Deficit PT Goal 1 Goal / Goal Update 1. independent and compliant with HEP Target Visit 6 Progress Met PT Problem 2 PT Problem #2 Pain PT Goal 1 Goal / Goal Update 1. decrease pain at worst to 2/10 or less in the L LE. Target Visit 24 Progress Not Met PT Problem 3 PT Problem #3 Impaired Strength PT Goal 1 Goal / Goal Update 1. patient to perform 10 SLR's of the L LE without extension lag 2. improve L knee strength to 4+/5 or better overall Target Visit 24 Progress Not Met PT Problem 4 PT Problem #4 Impaired Functional Mobil PT Goal 1 Goal / Goal Update 1. patient to ambulate with normal gait mechanics without need for brace of the L knee 2. no instance of the L knee giving out on her in the last week. 3. LEFS to display 20% or less functional deficits Target Visit 24 Progress Not Met
--- NOTE | 2024-06-11 15:33 | PTOPREEVAL ---
Assessment and note entered by JT File, PT Evaluation Information Assessment Status Re-evaluation Diagnosis L patellar dislocation, generalized weakness, L knee pain ICD-10 Condition Codes (PT) Pain in left knee M25.562 Other ICD-10 Condition Codes ( S83.005A, M62.81 PT) Onset 12/30/23 Subjective Information patient reports she feels Alright today. she reports she has fallen since her last re- evaluation/progress note due to the L knee giving out on her. she reports she does notice more shaking of the knee cap, and fatigue in the thigh /leg since starting therapy. she reports she did have pain management evaluation, butdoes not want meds or injection at this time. she reports she has been compliant with her HEP at home. Assessment PT Clinical Summary mrs. manzano presents to skilled PT services for her 12th skilled therapy visit. she presents still with weakness of the L quad. she displays improved quad recruitment and patellar elevation during quad set compared to her initial evaluation , but continues to lack stability for safe standing and ambulation without a brace. her progress will likely continue to be slower than normal given the damage to the nerves reported on her nerve conduction study. given this expected prolonged recovery time, and benefits noted thus far in skilled PT, she would benefit from continued skilled PT to address her remaining objective/functional deficits. Plan of Care Interventions Electrical Stimulation,Gait Training,Hot Pack/Cold Pack,Manual Therapy,Neuro Re-education,Patient/ Caregiver Educati,Therapeutic Activities, Therapeutic Exercise PT Services Indicated Yes Treatment Frequency and continue skilled PT 2x weekly for 12 more visits Duration These treatments will address the objective and functional deficits as defined above. The patient will be advanced safely and appropriately in order for the patient to progress towards his/her prior level of function. Additional exercises will be introduced and as well as a comprehensive home exercise program upon discharge, if needed, ?to ensure carryover of functional gains achieved in the clinic. This treatment plan has been reviewed and agreement upon by the patient.
== END 2024-07-30 14:36 | disposition still patient (30) ==
LOC: CHSPT 16:47
PROVIDERS: PCP Physician Assistant
DX: S83.005A Unspecified dislocation of left patella, initial encounter (principal); M62.81 Muscle weakness (generalized)
CPT/HCPCS: 97110; 97112; 97140; 97150; 97161

== ENCOUNTER 2024-08-07 16:59 | Outpatient (RCR) | payer BC, SELFPAY ==
--- NOTE | 2024-08-20 08:16 | PTOPDC ---
Assessment and note entered by Myrna Pollard DPT Evaluation Information Assessment Status Discharge Diagnosis L patellar dislocation, generalized weakness, L knee pain ICD-10 Condition Codes (PT) Pain in left knee M25.562 Other ICD-10 Condition Codes ( S83.005A, M62.81 PT) Onset 12/30/23 Subjective Information patient reports she has a MD appointment on 08/26 with a new ortho for a second opinion. she reports she has had more pain with the weather getting colder. she reports she fell on Monday when she was walking into the bathroom and was unable to catch herself. Reported Pain Level Pain Score 3: Self Report Assessment PT Clinical Summary Mrs. Haywood attended 24 visits of skilled PT. She did not meet set goals during POC but did show some improvement. She demonstrates 110 deg of active R knee flexion and 3-/5 strength of L knee extension. She reports she has fallen recently with R knee giving out . She is independent with HEP and will be discharged at this time due to plateau in progress. Plan of Care PT Services Indicated No
== END 2024-08-20 11:49 | disposition home or self-care (01) ==
LOC: CHSPT 16:59
PROVIDERS: PCP Physician Assistant
DX: S83.005A Unspecified dislocation of left patella, initial encounter (principal); M62.81 Muscle weakness (generalized)
CPT/HCPCS: 97110; 97112; 97150

== ENCOUNTER 2025-01-15 08:31 | Outpatient (CLI) | payer BC, SELFPAY ==
[2025-01-15 08:50] LABS: Basophils Absolute Auto 0.06 K/mm3 (0.00-0.10); Basophils Percent Auto 0.9 % (0.0-1.0); Eosinophils Percent Auto 2.9 % (1.0-6.0); Hematocrit 41.4 % (35.0-49.0); Hemoglobin 13.5 g/dL (12.0-15.0); Immature Granulocyte Absolute 0.02 K/mm3 (0.00-0.00); Immature Granulocyte Percent A 0.3 % (0.0-0.0); Lymphocytes Absolute Auto 2.42 K/mm3 (1.10-4.50); Mean Corpuscular HGB Conc 32.6 g/dL (32-36); Mean Corpuscular Hemoglobin 28.5 pg (27.0-31.0); Mean Corpuscular Volume 87.5 fL (78.0-102.0); Monocytes Absolute Auto 0.59 K/mm3 (0.10-0.90); Monocytes Percent Auto 8.5 % (2.0-11.0); Neutrophils Absolute Auto 3.63 K/mm3 (1.70-7.20); Neutrophils Percent Auto 52.4 % (50.0-70.0); Platelet Count Result 265 K/mm3 (150-420); Red Blood Count 4.73 M/mm3 (4.20-5.40); Red Cell Distribution Width 12.4 % (11.6-14.4); White Blood Count 6.9 K/mm3 (4.8-10.8)
--- OUTSIDE RECORDS SUMMARY | 2025-01-15 08:58 | XMS_ITS | Data Portability ---
Author Organization [facility], [facility] ([place]) Address [address] [place] [address] Care Team Providers Care Refuse And Recycling Worker Name Role Phone SHIRAZ ABDUL Primary Care Provider Assessment Encounter Date Assessment Date Assessment LastModified by Organization Details LastModified Time 02/28/2024 02/28/2024 SUBJECTIVE: Comes in today for a follow-up of her left knee. She was last seen here by me back on the 07 of February. She had a patella subluxation-type injury that we first saw her for back on January 02, 2024. She has had an exceedingly difficult time recovering from this. She is using her TROM brace still. She is now about to the point where she can flex it to 90 . Physical therapy is ongoing. She does feel like this is helping her. Overall, she feels she is now 50% better. DIAGNOSTIC STUDIES: We did end up getting an MRI of her knee. This was completed on 02/26/2024. This was independently reviewed here with her today on the PACS. There is some bone bruising lateral femoral condyle and medial facet patella. There is injury to the medial retinaculum, but no chondral injuries. No other findings of concern. The ligaments and menisci are intact. OBJECTIVE: She has quad atrophy. Weakness with hip flexion grade 4/5. Knee extension is weak as well but there is pain inhibition involved. There is no swelling, no effusion. She is able to flex to just short of 90 . No other abnormalities on exam today. ASSESSMENT: Left knee lateral patellar subluxation/disl ocation. Purvi appears to have had a spontaneous reduction after a full dislocation of that patella. She still is struggling a little bit, but rehab is helping. She is now able to flex her knee to almost 90 , which is great. One of her bigger concerns is the inability to comfortably walk, even with the brace she feels like there is some instability. Purvi is going to try a regular hinged knee brace instead of the TROM brace, but I advised that the instability she feels is her muscular inhibition related to the muscle wasting and atrophy and deconditioning since this injury. She needs to work hard in rehab. Hopefully, with the information given to her today from the MRI she will feel more comfortable pushing herself a little bit more. We will see how she is in 1 months time and do a phone follow-up. dmr Not available 02/29/2024 12:04:49 04/23/2024 04/23/2024 SUBJECTIVE: 28-year-old here for a follow-up once again for her left knee. She had a patella dislocation which was initially evaluated back in December, now almost 4 months ago. She has had an MRI which confirmed no structural damage other than some bone bruising and medial retinaculum injury. She initially started with a TROM brace, and then we switched her to a hinged knee brace, and now she is just using a knee sleeve. She feels that this more comfortable and helpful. She has been doing physical therapy down in [place]. She has seen a therapist once and has been working with a couple of different physical therapy assistants. The issue is she is having a hard time with knee extension. She was able to go to [employer] walk around, walk 20,000 steps a day, and had some pain and swelling at the end of the day. But was able to get through it. She feels weakness, but she is able to walk. The pain that she does have when she has it is in the anterior aspect of the knee. OBJECTIVE: CONST:-On examination appeared in good health and spirits. Alert and oriented. Vital signs as documented. EYES:-No icterus. RESP:-Breathing appears normal, unlabored. GI:-Abdomen nondistended. MSK:-The patient demonstrates full active and passive range of motion. There is no joint line tenderness medially or laterally. There is no instability with varus valgus stressing of the collateral ligaments. There was no pain or instability noted with manipulating or palpating the patella. Severe weakness with knee extension against resistance and gravity. Strength testing is about 1/5 is what I would estimate. Mirian's maneuver is negative and anterior posterior drawer test is negative. Kevin's test is negative as well. There is no swelling redness bruising or increased warmth to touch. No effusion is appreciated. Hip flexion strength is near 5/5. Knee flexion strength is close to 5/5. She has intact sensation to light touch in her lower extremity dermatomes bilaterally. She has 5/5 strength ankle dorsiflexion, toe extension, ankle eversion. Reflexes are 2+ in the patella and Achilles on each side. SKIN:-No cyanosis. Skin warm and dry. PSYCH:-Stable mood and affect. ASSESSMENT: Patella dislocation resolved. Now with residual quad weakness without obvious atrophy. PLAN: I have reassured Purvi that there is nothing on her MRI, which I again reviewed today, that shows any evidence of internal derangement or tears of the quad tendon or patellar tendon. The mechanism of injury does not support any sort of nerve root injury to that L4 level, and there is certainly no objective findings on her exam that would indicate an L4 nerve root injury. This appears to be all localized to the quadriceps; likely it is some neuromuscular inhibition. I discussed with her the brain not being able to get those signals to the muscles to get them to fire. The frustrating thing is the physical therapy is not making progress. She is working hard on her home exercises and is just not getting anywhere. I went downstairs after she left to talk with José Luis Ott one of our physical therapists about some other options, and we are going to see if we can get her over to [place] to see one of the therapists over there, Anabel, which may be better for her and help her get through this a little bit more effectively. We are also going to go ahead and get a nerve conduction study EMG to look for any other abnormalities that may be causing this issue. 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 We had a detailed discussion today regarding her prior medical evaluation and testing as well as interventions. We reviewed that the femoral neuropathy is the most likely etiology of her weakness given the location of her symptoms. We reviewed that the nerve was likely injured during her traumatic event and there is no evidence of a lumbar spine or nerve issue on MRI. We reviewed that it will likely take a considerable amount of time for us to see improvement in her nerve healing. She is certainly within the window of time that she can see further improvement. The best way to promote strength is through stimulation of the nerve and muscles. We do not have medications that can heal the nerve itself. 1. Recommend she continue with physical therapy, including stretching, strengthening, and electrical stimulation exercises. 2. Recommend she try pusu-kod-fdqkfdp topical diclofenac for her knee pain as this could provide a localized source of anti-inflammator y effect. 3. If muscle spasms become uncomfortable or more frequent, we could trial a muscle relaxer, but this is not necessary at this time. Return to clinic as needed. I personally spent a total of 45 minutes on the patient on this date of service including both alsa-cj-drlr and net-iqqw-sf-face time excluding any separately reportable services. dk [email or web address] Not available 05/29/2024 13:17:54 06/25/2024 06/25/2024 SUBJECTIVE: 69-year-old female here for a follow-up of her left knee patella subluxation and femoral neuropathy. She has started to make some progress; she comes in today feeling like stability is better and the physical therapy is helping. She still feels significantly weak. She did get the EMG done and did see Dr. Schmidt who did not recommend anything other than the physical therapy and she has been doing that already including electrical stim, strengthening, etc. We talked about using muscle relaxer for diclofenac if needed, but at this point she is doing relatively well, does not sound like she needs to use that medication. REVIEW OF SYSTEMS: CONST:-Denies fevers or chills. GI:-Denies nausea, vomiting, diarrhea, dark, tarry stools or bleeding. MSK:-Denies new injury or extremity swelling/edema. SKIN:-Denies rashes or other skin lesions. NEURO:-Denies any new pain or weakness. Reviewed past medical history, family history, surgical history, social history. OBJECTIVE: She comes in today not wearing her knee brace. She is able to get up, stand, and ambulate. She does have the ability to extend about 30 . There is muscle activity in the quad and strain, but she is not able to hold the knee in an extended position against gravity. Hip flexion strength is similar. ASSESSMENT: Patella subluxation with femoral neuropathy improving slowly. PLAN: Purvi does understand that this is going to take months to resolve. She is working on physical therapy. There is progress being made. I have strongly encouraged her to use the brace particularly when she is walking outside the house on uneven ground or on her feet for an extended period of time. This will protect her knee and she expressed understanding. We are just going to see her back on an as needed basis, no other changes are necessary at this time. [email or web address] [email or web address] Not available 06/26/2024 15:30:23 Plan of Treatment Reminders Order Date Submit Date Provider Last Modified By Organization Details Last Modified Time Details Appointments None record ed. Lab None record ed. Referral None record ed. Procedures None record ed. Surgeries None record ed. Imaging None record ed. Medication Orders None record ed. Patient TargetsNo targets recorded. Patient InstructionsNo instructions recorded. Reason for Referral None Reported. Results Created Date Observation Date Name Description Value Unit Range Abnormal Flag Note LastModifiedBy Organization Detail LastModifiedTime 02/27/20 24 02/26/2024 MRI, knee, w/[place] [address] Teleph one Name: Purvi Haywood [id number] am Date: 2023 Age: 28Phys ician: Rashid hirsch MD, Chris : 1994Ex aminat ion: MRI KNEE WO LEFT EXAM: MRI left knee withou t contra st HISTOR Y: Left knee patell ar sublux ation. Limite d range of motion and pain. TECHNI QUE: MRI examin ation of the left knee was perfor med withou t contra st. COMPAR CARA: None FINDIN GS: In the medial compar tment, the menisc us is intact . No focal chondr osis or subcho ndral edema is seen. In the latera l compar tment, the menisc us is intact . No focal chondr osis is seen. In the patell ofemor al compar tment, there is mild bone marrow contus ion within the medial patell ar facet inferi lemuel. There is mild irregu larity of the overly ing cartil age. No chondr al fractu re is seen. There is bone marrow contus ion within the latera l femora l condyl e. There is a low-gr ted sprain of the medial patell ofemor al retina culum. There is a knee joint effusi on. No loose body is seen. The crucia te and collat eral ligame nts appear intact . There is a tiny Garner' s cyst. The patell ar tendon and priscila ceps tendon appear intact . There is 16 mm tibial tuberc le trochl ear groove distan ce. IMPRES LORIE: Sequel a of latera l patell ar disloc ation reloca tion. Mild bone marrow contus ion latera l femora l condyl e and medial patell ar facet. No chondr al fractu re or loose body. Low-gr ted sprain of the medial patell ofemor al retina culum. Electr onical ly signed in Kailyn chow by: BRITNEY Mohan on:02/26 8:03 AM cc: Page PAGE 1 of [facility] [place] [facility] - [facility] [address] [place], [address], 02/27/2024 09:24:57 05/17/20 24 05/17/2024 MRI, lumba r spine , w/o contr ast [facility] [address] [place] [address] Teleph one [phone] Name: Purvi Haywood [id number] Exam Date: 2023 Age: 28 Physic nikos: Rashid hirsch MD, Chris : 1994 Examin ation: MRI LUMBAR WO CONTRA ST EXAMIN ATION: MRI lumbar INDICA TION: injure d in December 2023. pt disloc ated left patell a, persis tent knee pain but is also develo ped weakne ss and atroph y of the thigh muscul ature. per EMG-Ca nnot entire ly rule out the possib ility of an acute L3 radicu lopath y but the absenc e of sponta neous activi ty in the lumbar parasp inous muscle s sugges t the locali zation is much more likely at the level of the femora l nerve. Pt denies hips or lower back pain at this moment . TECHNI QUE: MRI evalua tion of the lumbar spine perfor med using STIR, T1 and T2-jonathan ghted sequen colleen. COMPAR CARA: None FINDIN GS: There are 5 lumbar type verteb ral bodies . Osseou s struct ures are normal in alignm ent. Verteb ral body height s are mainta ined with no marrow signal abnorm ality. Conus is normal in positi on and signal charac terist ics, termin ating at L1-2. Cauda equina nerve roots are normal ly distri buted within the thecal sac. Indivi dual disc levels are as follow s: T12-L1 : No signif icant disc bulge, canal stenos is or forami nal stenos is. L1-L2: No signif icant disc bulge, canal stenos is or forami nal stenos is. L2-3: No signif icant disc bulge, canal stenos is or forami nal stenos is. L3-4: No signif icant disc bulge, canal stenos is or forami nal stenos is. L4-5: No signif icant disc bulge, canal stenos is or forami nal stenos is. L5-S1: No signif icant disc bulge, canal stenos is or forami nal stenos is. Sacrum : Normal visual ized upper sacrum IMPRES LORIE: Normal MRI of the lumbar spine. Electr onical ly signed in Avina cri by: MARIO PIERCE MD on:04/23 12:16 PM cc: Page PAGE 1 of [facility] 1 [facility] [place] [facility] - [facility] [address], [place], [address], 05/21/2024 17:03:27 08/20/2012/30/2023 imagi ng/di agnos tic resul t No observ ation record ed. [email or web address] Not Available 03:35:32 10/12/31/2023 imagi ng/di zacos tic resul t No observ ation record ed. [email or web address] Not Available 03:35:32 Result Notes None recorded. Problems Name Problem SNOMED Code Status Onset Date Resolution Date Notes Provider Name and Address Organization Details Recorded Time Femoral neuropathy 96147836 Active 2023 Chris Schmidt MD [address] [place], [address], [facility] 4 10:48:46 Weakness of left lower limb Active 2023 Chris Schmidt MD [address] [place], [address], [facility] 4 10:49:04 Subluxation of left patellofemo ral joint Active 2023 Patricia Ruiz [facility] 4 18:24:34 Disorder of left femoral nerve 9514596786116 05 Active 2023 Patricia Ruiz [facility] 4 18:24:57 Closed traumatic dislocation of patellofemo ral joint 111491737 Active 2023 Laila Valdivia [facility] 4 17:09:52 Closed traumatic dislocation of patellofemo ral joint 412599096 Active 2023 Laila Valdivia [facility] 4 17:10:38 Closed left patella dislocation 3788290915325 9109 Active 2023 Patricia Ruiz [facility] 4 22:44:31 Dislocation of patellofemo ral joint 353152555 Active 2023 Patricia Ruiz [facility] 4 20:06:26 Quadriceps weakness 662436935 Active 2023 Laila Valdivia null, [facility] 4 16:44:27 Femoral neuropathy 59137696 Active 2023 Sulaiman Alexander MD [address] [place] [address], [address], [facility] 4 09:11:20 Problem Notes None recorded. Procedures Surgical History Date Name Laterality Status Provider Name and Address Organization Details Recorded Time [facility] Procedure completed Sulaiman Alexander MD [address] [place] [address], [phone], [facility] 05/08/2024 09:10:33 Imaging Results Imaging Date Name Status LastModified by Organiz ation Details LastModified Time 02/26/2024 MRI, knee, w/o contrast completed [facility] [address] [place] [address], [address], 02/27/2024 09:24:57 05/17/2024 MRI, lumbar spine, w[facility]o contrast [facility] [address] [place] [address], [address], 05/21/2024 17:03:27 12/30/2023 imaging/diagn ostic result completed Information not available 08/20/2024 03:35:32 12/31/2023 imaging/diagn ostic result completed Information not available 08/20/2024 03:35:32 Procedure Notes None recorded. Medical Equipment None Reported. Medications Name Sig Start Date Stop Date Status Note LastModified by Organization Details LastModified Time bupropion HCl XL 150 mg 24 hr tablet, extended release TAKE 1 TABLET BY MOUTH DAILY active Not Available Not Available No t Available Vitals Date Recorded Heart rate Oxygen saturation Oxygen saturation in Arterial blood by Pulse oximetry Provider Name and Address Organization Details Last Updated DateTime 04/23/2024 106 /min 98 % 98 % [facility] 04/23/2024 16:24:56 Date Recorded Heart rate Oxygen saturation Oxygen saturation in Arterial blood by Pulse oximetry Provider Name and Address Organization Details Last Updated DateTime 06/25/2024 80 /min 99 % 99 % [facility] 06/25/2024 09:34:17 Social History None recorded. Functional Status None recorded. Mental Status None recorded. Family History Nothing Reported. Medical History No medical history recorded. Gynecological HistoryNo gynecological history recorded. Obstetrics History GPAL:G 0 P 0 0 0 0 Past Encounters Encounter ID Performer Location Encounter Start Date Encounter Closed Date Diagnosis/Indication Diagnosis SNOMED-CT Code Diagnosis ICD10 Code Diagnosis Note [id number] Lilian Don [address] [facility] ([place] [address] [place] [address],[address] [place] [address] 02/08/2024 16:18:51 02/08/2024 17:02:35 Closed traumatic dislocation of patellofemoral joint 763581920 S83.005A M25.562 Closed lef t patella dislocation 5109587838 0422628 S83.005D [id number] Chris Fleming MD [address] [facility] ([place] [address] [place] [address],[address] [place] [address] 02/28/2024 18:10:43 02/28/2024 19:07:26 Dislocation of patellofemoral joint 250715683 S83.005D [id number] Chris Fleming MD [address] [facility] ([place] [address] [place] [address],[address] [place] [address] 04/23/2024 16:09:36 04/23/2024 16:52:32 Quadriceps weakness 440440959 M62.81 Closed lef t patella dislocation 7230706438 0855571 S83.005S [id number] Sulaiman Alexander MD [address] [facility] ([place]) [address] [place] [address],[address] [place] [address] 05/08/2024 08:44:10 05/08/2024 13:42:14 Femoral neuropathy 90611375 G57.22 [id number] Chris Schmidt MD [address] [facility] ([place]) [address] [place] [address],[address] [place] [address] 05/29/2024 10:07:50 05/29/2024 13:30:05 Closed traumatic dislocation of patellofemoral joint 774471602 S83.095S Femoral neuropathy 70730 000 G57.22 Weakness o f left lower limb 7656552178 99833 M62.81 [id number] Chris Fleming MD 800 [facility] ([place]) [address] [place] [address] 06/25/2024 09:12:35 06/25/2024 09:43:58 Subluxation of left patellofemoral joint 8588917108 7104 S83.002D Additional diagnosis detail: Subluxatio n of left patella, subsequent encounter Disorder o f left femoral nerve 7288560489 40537 G57.22 Additional diagnosis detail: Femoral neuropathy of left lower extremity Health Concerns Section Related Observation LastModified by Organization Detai ls LastModified Time None Recorded Concern Status LastModified by Organization Details LastModified Time None Recorded Advance Directives Directive None Recorded Payers Encounter Date Sequence Insurance Name Policy Number Policy Rosales Covered Member ID Rosales Member ID Guarantor Name 02/28/2024 1 [employer] [id number] Purvi Haywood [id number] Purvi Haywood 04/23/2024 1 [place] [id number] Purvi Haywood [id number] Purvi Haywood 05/08/2024 1 [place] [id number] Purvi Haywood [id number] Purvi Haywood 05/29/2024 1 [place] [id number] Purvi Haywood [id number] Purvi Haywood 06/25/2024 1 [place] [id number] Purvi Haywood [id number] Purvi Haywood Notes Date Note Type Note Provider Name and Address Organization Details Recorded Time 05/29/2024 text/html Purvi Haywood is a 28-year-old female presenting to PM&R clinic for evaluation of left leg weakness. She has a history of a left patellar dislocation in December of 2023 when her daughter sat on her outstretched knee. She has been following with Orthopedics. Due to persistent weakness in the left hip flexor and knee extensor, she underwent electrodiagnostic testing which was consistent with severe left femoral neuropathy with marked ongoing denervation of the iliopsoas and quadriceps muscles. MRIs of the lumbar spine and left knee showed no acute findings in the spine and expected changes in the knee after a patellar dislocation but nothing to explain her ongoing symptoms. She feels that the weakness has been consistent since the knee injury and she has not made much progress. She will have numbness that occurs below the knee if she sits for too long but does not have numbness above the knee. She will have swelling on the lateral aspect of the knee that increases with activity and as the day goes on. She has pain medial to the left kneecap and inferior to the kneecap as well as along the lateral aspect of the left thigh intermittently. She will have muscle spasms in the left thigh intermittently at the end of the day, but these are not painful. She has been doing physical therapy. She was doing this in [place] and recently switched to a therapist in [place]. They have been doing electrical stimulation and strength-building exercises. She is ambulating without assistive device but does have notable difficulty with swinging her left leg forward. She was wearing a knee brace and has now been using a knee sleeve.mich Schmidt MD [address] [place] [address], [phone], [facility] 06/03/2024 09:59:09 OBGyn Episode No OBEpisode recorded.
[2025-01-15 09:41] LABS: Alanine Aminotransferase 27 U/L (14-59); Alkaline Phosphatase 102 U/L (46-116); Anion Gap 7 mmol/L (4-12); Aspartate Amino Transferase 15 U/L (15-37); Bilirubin,Total 0.6 mg/dL (0.00-1.00); Blood Urea Nitrogen 16 mg/dL (7-18); Calcium 9.4 mg/dL (8.5-10.1); Carbon Dioxide 30 mmol/L (21-32); Chloride 103 mmol/L (98-108); Cholesterol 230 mg/dL (0-200); Estimated Glomerular Filt Rate > 60; Glucose 89 mg/dL (70-99); HDL Direct 58 mg/dL (40-60); LDL Cholesterol Calculated 151 mg/dL (<130); Osmolality Calculated 290 mOsm/kg (285-295); Potassium 4.3 mmol/L (3.5-5.1); Sodium 140 mmol/L (136-145); Total Protein 7.7 g/dL (6.4-8.2); Triglycerides 106 mg/dL (0-150)
[2025-01-15 09:50] LABS: Thyroid Stimulating Hormone Reflex 1.77 u/IU/mL (0.36-3.74)
== END 2025-01-15 08:32 | disposition home or self-care (01) ==
PROVIDERS: PCP Physician Assistant; Visit Provider Physician Assistant
DX: Z13.220 Encounter for screening for lipoid disorders (principal); Z83.3 Family history of diabetes mellitus; F41.9 Anxiety disorder, unspecified
CPT/HCPCS: 36415; 80053; 80061; 84443; 85025